=== PATIENT | male | born 1970 ===

== ENCOUNTER 2023-02-15 16:56 | Emergency (ER) | payer BC ==
[2023-02-15] MEDS ORDERED: Sodium Chloride 0.9% 2.5 ML Syringe FLUSH PRN (17:05)
[2023-02-15] MEDS ORDERED: Sodium Chloride 0.9% 10 ML Syringe FLUSH PRN (17:05)
[2023-02-15] MEDS ORDERED: Lidocaine 1% 5 ML VIAL INJECT STA (17:08)
[2023-02-15] MEDS ORDERED: Diphtheria,Pertussis(Acell),Tetanus Vaccine 0.5 ML Syringe IM ONE (17:09)
[2023-02-15] MEDS ORDERED: Bacitracin Oint 1 GM U/D Packet TOP STA (18:57)
[2023-02-15 19:38] VITALS: BP 136/90; PULSE 70
== END 2023-02-15 19:38 | disposition home or self-care (01) ==
LOC: MW.ED 16:56
DX: S01.01XA Laceration without foreign body of scalp, initial encounter (principal); Z23 Encounter for immunization; W22.8XXA Striking against or struck by other objects, initial encounter
CPT/HCPCS: 12002; 70450; 70450-26; 90471; 90715; 99284; 99284-25; J3490